=== PATIENT | female | born 1980 | race Caucasian/White ===

== ENCOUNTER 2020-11-23 15:54 | Emergency (ER) | payer OTHER, SELFPAY ==
--- NOTE | ~2020-11-23 | XR_ITS ---
EXAMINATION: XR chest 2V DATE: 11/23/2020 17:06 INDICATION: Midsternal chest pain. TECHNIQUE: Frontal and lateral views of the chest were obtained. COMPARISON: None. FINDINGS: The chest demonstrates clear lungs without pneumonia, pleural effusion, or pneumothorax. Th e heart size is normal. IMPRESSION: 1. No acute cardiopulmonary disease. Reviewed, dictated and finalized at location A. [facility] C[facility] TECHNICIAN
[2020-11-23 16:05] VITALS: BP 124/78; PULSE 88; RESP 20; TEMP 36.3; O2SAT 100
--- NOTE | 2020-11-23 16:15 | ED.URI ---
HPI - URI/Sore Throat General Chief Complaint: Upper Respiratory Infection Stated Complaint: pressure between chest & back Time Seen by Provider: 11/23/20 16:15 Source: patient Mode of arrival: ambulatory Limitations: no limitations History of Present Illness HPI Narrative: Sherry Yuong is a 40 yo female with no PMH who comes to [facility] with complaints of worsening chest wall pain and pressure that started yesterday but today has gotten severe enough that she can barely move. She has been sick with a stuffed up nose and cough for 4 to 6 weeks but her cough is gone much worse in the last 2 to 3 days and she woke up yesterday with soreness in her chest which is gotten worse in the last 24 hours. Related Data Allergies Allergy/AdvReac Type Severity Reaction Status Date / Time No Known Allergies Allergy Verified 11/23/20 16:20 Review of Systems Review of Systems: Narrative: CONSTITUTIONAL: Denies fever, chills, sweats. EYES: Denies visual changes, redness, discharge. ENT: Denies rhinorrhea, has congestion, sore throat, otalgia. CARDIOVASCULAR: has chest wall pain, palpitations, edema. RESPIRATORY: Denies dyspnea, wheezing, has dry cough GASTROINTESTINAL: Denies abdominal pain, nausea, vomiting, diarrhea. GENITOURINARY: Denies dysuria, hematuria, abnormal discharge SKIN: Denies rash or itching. NEUROLOGIC: Denies numbness, or focal weakness. PSYCHIATRIC: Denies anxiety or depression. Pain with twisting/moving PMFSH Past Medical History Medical History (Updated 11/23/20 @ 17:51 by Helena Still CNP) No acute medical problems Family History Family History Other Depression Social History Social History Smoking status: Never smoker Alcohol intake: current Comments At time of signature, I agree with nursing past medical, surgical, social and family history. There is no relevant family history pertinent to the presenting complaint. Exam Narrative: Exam Narrative: GENERAL: This is a well-nourished, well-developed patient, in moderate distress. HEAD: normocephalic, atraumatic. EYES: Sclera clear/white. Vision is grossly intact. EARS: External ears normal, Hearing grossly intact. NOSE: External nose normal without nasal discharge, nares without redness, no rhinorrhea. THROAT: Mucous membranes moist, NECK: Neck supple, non-tender CARDIOVASCULAR: Regular rate and rhythm without murmurs, gallops, or rubs. RESPIRATORY: Diminished to auscultation. Breath sounds equal but shallow. No wheezes, rales, or rhonchi. GASTROINTESTINAL: Abdomen soft, SKIN: warm, intact with no suspicious lesions or rash, good texture and turgor. NEURO: awake, alert, and oriented to person, place and time. There were no obvious focal neurologic abnormalities. Steady gait EXTREMITIES: Normal range of motion. difficult to move without pain BACK:tender to palpation along ribs, without deformity Course Course Emergency Course: Patient comes to [facility] with complaints of chest wall pain and difficulty moving after developing a increasingly severe dry cough, worse than yesterday, has been ill with congestion and general cough for 4 to 6 weeks COVID rapid negative EKG done: Normal EKG-heart rate is 63 ME interval 120 no axis deviation QT/ QTC ratio 404/412. Chest Xray done- results: negative for acute cardiopulmonary disease Started on prednisone, albuterol inhaler, ibuprofen 800 mg, codeine cough syrup, tramadol Spoke with patient the importance of rest and hydration Vital Signs Vital signs: Vital Signs Temperature 97.4 F L 11/23/20 16:05 Pulse Rate 88 11/23/20 16:05 Respiratory Rate 20 11/23/20 16:05 Blood Pressure 124/78 11/23/20 16:05 Pulse Oximetry 100 11/23/20 16:05 Temperature 97.4 F L 11/23/20 16:05 Pulse Rate 88 11/23/20 16:05 Respiratory Rate 20 11/23/20 16:05 Blood Pressure
--- NOTE | 2020-11-23 16:19 | ECG_ITS ---
Measurements Intervals [place] Rate: 63 P: 48 UT: 120 QRS: 78 QRSD: 105 T: 72 QT: 404 QTc: 416 Interpretive Statements SINUS RHYTHM BASELINE ARTIFACT- II, III, AVF NORMAL ECG Electronically Signed On 11-23-2020 18:53:41 [employer]QU[employer]AYER by Sixto Watts D.O.
[2020-11-23] MEDS: KETOROLAC (*BKC) 60 MG/2 ML VIAL IM (16:28)
== END 2020-11-23 17:56 | disposition home or self-care (01) ==
PROVIDERS: Emergency Provider Nurse Practitioner
DX: J40 Bronchitis, not specified as acute or chronic (principal); R07.89 Other chest pain; Z20.822 Contact with and (suspected) exposure to COVID-19
CPT/HCPCS: 71046; 87426; 93005; 96372; 99213; C9803; G0463; J1885